=== PATIENT | female | born 2000 | race Hispanic/Latino ===

== ENCOUNTER 2020-08-29 13:38 | Observation (INO) | payer MEDICAID ==
[~2020-08-29] VITALS: Ht 154.9 cm; Wt 71.2 kg
[2020-08-29 14:58] LABS: APPEARANCE,URINE CLOUDY (CLEAR); BILIRUBIN,URINE NEGATIVE (NEGATIVE); COLOR,URINE YELLOW (YELLOW); GLUCOSE, URINE (UA) NEGATIVE (NEGATIVE); KETONES,URINE NEGATIVE (NEGATIVE); LEUKOCYTE ESTERASE ,URINE MODERATE (NEGATIVE); NITRATE,URINE NEGATIVE (NEGATIVE); OCCULT BLOOD,URINE NEGATIVE (NEGATIVE); PROTEIN,URINE NEGATIVE (NEGATIVE); UROBILINOGEN,URINE 0.2 mg/dL (0.2-1.0)
[2020-08-29 15:20] LABS: BACTERIA,URINE Few /HPF (None Seen); RBC,URINE 0-1 /HPF (0-1); SQUAMOUS EPITHELIAL CELL,UR Moderate /HPF (0-2)
[2020-08-29 15:21] LABS: MUCUS,URINE Rare LPF (None Seen)
== END 2020-08-29 15:40 | disposition home or self-care (01) ==
LOC: EDH 13:38 → LDH 13:39
PROVIDERS: ADMIT Obstetrics & Gynecology; ATTEND Obstetrics & Gynecology
DX: O26.892 Other specified pregnancy related conditions, second trimester (principal); R10.9 Unspecified abdominal pain; Z3A.21 21 weeks gestation of pregnancy
CPT/HCPCS: 59025; 81001; 87088; 99284; G0378 ×2

== ENCOUNTER 2021-01-14 20:07 | Inpatient (IN) | payer MEDICAID ==
[~2021-01-14] VITALS: Ht 154.9 cm; Wt 79.4 kg
[2021-01-14] MEDS ORDERED: LACTATED RINGERS 1000ML 1,000 ML IV SCH (20:30)
[2021-01-14 20:50] LABS: APPEARANCE,URINE Cloudy (CLEAR); BILIRUBIN,URINE Negative (NEGATIVE); COLOR,URINE Yellow (YELLOW); GLUCOSE, URINE (UA) Negative (NEGATIVE); KETONES,URINE Negative (NEGATIVE); LEUKOCYTE ESTERASE ,URINE Large (NEGATIVE); NITRATE,URINE Negative (NEGATIVE); OCCULT BLOOD,URINE Negative (NEGATIVE); PROTEIN,URINE POS 1+ mg/dL (NEGATIVE)
[2021-01-14 20:57] LABS: BACTERIA,URINE Few /HPF (None Seen); RBC,URINE 0-1 /HPF (0-1); SQUAMOUS EPITHELIAL CELL,UR Moderate /HPF (0-2)
[2021-01-14 21:43] LABS: AMPHET/METH SCREEN,URINE NEGATIVE (NEGATIVE); BARBITURATE SCREEN, URINE NEGATIVE (NEGATIVE); BENZODIAZEPINES SCREEN,URINE NEGATIVE (NEGATIVE); CANNABINOID SCREEN,URINE NEGATIVE (NEGATIVE); COCAINE SCREEN,URINE NEGATIVE (NEGATIVE); OPIATE SCREEN,URINE NEGATIVE (NEGATIVE); PHENCYCLIDINE SCREEN,URINE NEGATIVE (NEGATIVE)
[2021-01-14] MEDS ORDERED: LACTATED RINGERS 1000ML 1,000 ML IV PRN (22:00)
[2021-01-14 22:12] LABS: HEMATOCRIT 33.8 % (36-48); MEAN CORPUSCULAR HEMOGLOBIN 29.5 pg (27.0-33.0); MEAN CORPUSCULAR HGB CONC 33.7 g/dL (32.0-36.0); MEAN CORPUSCULAR VOLUME 87.3 fL (80-100); RED BLOOD CELL COUNT(AUTO) 3.87 MIL/uL (4.00-5.50); RED CELL DISTRIBUTION WIDTH 13.4 % (11.0-15.5); WHITE BLOOD COUNT (AUTO) 8.8 K/uL (4.8-10.8)
[2021-01-15 00:21] VITALS: BP 112/70
[2021-01-15] MEDS ORDERED: OXYTOCIN-LR 20 UNITS/1000 ML 1,000 ML IV ONE (06:24)
[2021-01-15] MEDS ORDERED: OXYTOCIN-LR 20 UNITS/1000 ML 1,000 ML IV SCH (06:30)
[2021-01-15] MEDS ORDERED: EPHEDRINE SULFATE 50 MG/ML AMPULE IVP PRN (10:00)
[2021-01-15] MEDS ORDERED: NALOXONE HCL 0.4 MG/1 ML ML IV PRN (10:00)
[2021-01-15] MEDS ORDERED: ROPIVACAINE 0.2% 100ML VIAL 100 ML EP SCH (10:00)
[2021-01-15] MEDS ORDERED: LIDOCAINE HCL 1% 20 ML VIAL ONE (17:31)
[2021-01-15] MEDS ORDERED: METHYLERGONOVINE MALEATE 0.2 MG/1 ML ML ONE (17:49)
[2021-01-15] MEDS ORDERED: MISOPROSTOL 200 MCG TABLET ONE (17:53)
[2021-01-15] MEDS: OXYTOCIN-LR 20 UNITS/1000 ML 1,000 ML IV SCH ×2 (18:00→18:52)
[2021-01-15] MEDS ORDERED: ACETAMINOPHEN WITH CODEINE 1 TAB TAB PO PRN (18:30)
[2021-01-15] MEDS ORDERED: BENZOCAINE/LANOLIN/ALOE VERA 60 ML AEROSOL TP PRN (18:30)
[2021-01-15] MEDS ORDERED: LANOLIN 30GM OINTMENT TP PRN (18:30)
[2021-01-15] MEDS ORDERED: ACETAMINOPHEN 325 MG TAB PO PRN (18:30)
[2021-01-15] MEDS ORDERED: DIPH,PERTUSS(ACELL),TET VAC/PF 0.5 ML VIAL IM PRN (18:30)
[2021-01-15] MEDS ORDERED: WITCH HAZEL 1 PAD TP PRN (18:30)
[2021-01-15] MEDS ORDERED: MEASLES/MUMPS/RUBELLA VACCINE, LIVE 0.5 ML/VIAL SQ PRN (18:30)
[2021-01-15] MEDS: IBUPROFEN 600 MG TABLET PO PRN (19:41)
[2021-01-15 19:50] VITALS: BP 135/80
[2021-01-15] MEDS: DOCUSATE SODIUM 100 MG CAP PO SCH (22:05)
[2021-01-15] MEDS ORDERED: PREN-202 PO (22:06)
[2021-01-15] MEDS ORDERED: CEPH500T PO (22:06)
[2021-01-15 23:31] VITALS: BP 129/80
[2021-01-16 03:22] VITALS: BP 135/97
[2021-01-16] MEDS: IBUPROFEN 600 MG TABLET PO PRN ×3 (03:26→16:34)
[2021-01-16 06:41] LABS: HEMATOCRIT 27.7 % (36-48); MEAN CORPUSCULAR HEMOGLOBIN 29.7 pg (27.0-33.0); MEAN CORPUSCULAR HGB CONC 33.9 g/dL (32.0-36.0); MEAN CORPUSCULAR VOLUME 87.7 fL (80-100); RED BLOOD CELL COUNT(AUTO) 3.16 MIL/uL (4.00-5.50); RED CELL DISTRIBUTION WIDTH 13.2 % (11.0-15.5); WHITE BLOOD COUNT (AUTO) 16.4 K/uL (4.8-10.8)
[2021-01-16 08:05] VITALS: BP 128/79
[2021-01-16 08:15] LABS: HEPATITIS Bs ANTIGEN SCREEN P Negative (Negative)
[2021-01-16] MEDS: DOCUSATE SODIUM 100 MG CAP PO SCH (08:43)
[2021-01-16 11:20] VITALS: BP 139/84
[2021-01-16 11:50] VITALS: BP 126/82
[2021-01-16] MEDS ORDERED: IBUP-2070 PO (15:55)
[2021-01-16] MEDS ORDERED: FERR325T22 PO (15:55)
[2021-01-16 16:12] VITALS: BP 111/62
== END 2021-01-16 18:20 | disposition home or self-care (01) | DRG 560 ==
LOC: EDH 20:07 → OBSVTOIN 20:08 → LDH 20:08 → WSH 01-15 19:45
PROVIDERS: ADMIT Obstetrics & Gynecology; ATTEND Obstetrics & Gynecology
PROC: 10E0XZZ Delivery of Products of Conception, External Approach (ICD-10-PCS; principal; 2021-01-14)
PROC: 0W8NXZZ Division of Female Perineum, External Approach (ICD-10-PCS; 2021-01-14)
DX: O69.1XX0 Labor and delivery complicated by cord around neck, with compression, not applicable or unspecified (principal); Z37.0 Single live birth; Z3A.39 39 weeks gestation of pregnancy
CPT/HCPCS: 36415; 80305; 81001; 85027; 86592; 86850; 86900; 86901; 87088; 87340; 90715; A4314; G0378; J2210; J2590; J7120

== ENCOUNTER 2021-03-11 00:52 | Emergency (ER) | payer MEDICAID ==
[~2021-03-11] VITALS: Ht 154.9 cm; Wt 70.3 kg
[~2021-03-11 00:52] MED LIST: CEPH500T PO; FERR325T22 PO; IBUP-2070 PO; PREN-202 PO
[2021-03-11] MEDS ORDERED: ONDANSETRON 4MG INJ ONE (01:10)
[2021-03-11] MEDS ORDERED: ONDANSETRON 4MG INJ IVP ONE (01:30)
[2021-03-11] MEDS ORDERED: 0.9%NACL 1000ML 1,000 ML IV SCH (01:30)
[2021-03-11 01:38] LABS: BASOPHILS % (AUTO) 0.2 % (0.0-5.0); EOSINOPHILS % (AUTO) 0.8 % (0.0-8.0); HEMATOCRIT 36.6 % (36-48); LYMPHOCYTES % (AUTO) 48.7 % (21.0-51.0); MEAN CORPUSCULAR HEMOGLOBIN 29.2 pg (27.0-33.0); MEAN CORPUSCULAR HGB CONC 33.9 g/dL (32.0-36.0); MEAN CORPUSCULAR VOLUME 86.3 fL (80-100); MONOCYTES % (AUTO) 5.4 % (3.0-13.0); NEUTROPHILS % (AUTO) 44.8 % (40.0-77.0); PLATELET COUNT (AUTO) 277 K/uL (130-400); RED BLOOD CELL COUNT(AUTO) 4.24 MIL/uL (4.00-5.50); RED CELL DISTRIBUTION WIDTH 12.7 % (11.0-15.5); WHITE BLOOD COUNT (AUTO) 8.3 K/uL (4.8-10.8)
[2021-03-11 01:49] LABS: CREATININE 0.8 mg/dL (0.5-1.5); POTASSIUM 3.7 mmol/L (3.5-5.1)
[2021-03-11 01:53] LABS: ALBUMIN 3.6 g/dL (3.5-5.0); BILIRUBIN,TOTAL 0.3 mg/dL (0.2-1.0); TOTAL PROTEIN, SERUM 7.6 g/dL (6.0-8.3)
[2021-03-11 03:37] VITALS: BP 115/78
[2021-03-11 03:40] LABS: APPEARANCE,URINE Clear (CLEAR); BILIRUBIN,URINE Negative (NEGATIVE); COLOR,URINE Yellow (YELLOW); GLUCOSE, URINE (UA) Negative (NEGATIVE); KETONES,URINE Negative (NEGATIVE); LEUKOCYTE ESTERASE ,URINE Trace (NEGATIVE); NITRATE,URINE Negative (NEGATIVE); OCCULT BLOOD,URINE Large (NEGATIVE); PH,URINE 6.5 (5.0-8.0); PROTEIN,URINE Negative (NEGATIVE); UROBILINOGEN,URINE 0.2 mg/dL (0.2-1.0)
[2021-03-11 04:14] LABS: BACTERIA,URINE None Seen /HPF (None Seen); SQUAMOUS EPITHELIAL CELL,UR Moderate /HPF (0-2)
[2021-03-11 04:36] LABS: AMPHET/METH SCREEN,URINE NEGATIVE (NEGATIVE); BARBITURATE SCREEN, URINE NEGATIVE (NEGATIVE); BENZODIAZEPINES SCREEN,URINE NEGATIVE (NEGATIVE); CANNABINOID SCREEN,URINE NEGATIVE (NEGATIVE); COCAINE SCREEN,URINE NEGATIVE (NEGATIVE); OPIATE SCREEN,URINE NEGATIVE (NEGATIVE); PHENCYCLIDINE SCREEN,URINE NEGATIVE (NEGATIVE)
[2021-03-11] MEDS ORDERED: CIPR-278 PO (04:41)
[2021-03-11] MEDS ORDERED: NAPR-1180 PO (04:41)
[2021-03-11] MEDS ORDERED: ONDA4TAB4 PO (04:41)
== END 2021-03-11 04:54 | disposition home or self-care (01) ==
LOC: EDH 00:52
DX: K80.70 Calculus of gallbladder and bile duct without cholecystitis without obstruction (principal); R11.2 Nausea with vomiting, unspecified; Z79.899 Other long term (current) drug therapy; Z79.1 Long term (current) use of non-steroidal anti-inflammatories (NSAID)
CPT/HCPCS: 36415; 76700; 80053; 80305; 81001; 83690; 84702; 85025; 87088; 96361 ×2; 96374; 99284; J2405

== ENCOUNTER → 2022-01-30 | Outpatient (CLI) | payer MEDICAID ==
[~2022-01-30] MED LIST changes: +CIPR-278 PO; +NAPR-1180 PO; +ONDA4TAB4 PO
== END | disposition home or self-care (01) ==
LOC: RAH 11:11
PROVIDERS: ATTEND Family Medicine
DX: K76.0 Fatty (change of) liver, not elsewhere classified (principal); R10.11 Right upper quadrant pain; K80.20 Calculus of gallbladder without cholecystitis without obstruction
CPT/HCPCS: 76705

== ENCOUNTER 2022-09-09 22:46 | Observation (INO) | payer MEDICAID ==
[~2022-09-09] VITALS: Ht 154.9 cm; Wt 78.5 kg
[2022-09-09] MEDS ORDERED: PREN-196 PO (23:08)
[2022-09-09 23:22] LABS: APPEARANCE,URINE CLOUDY (CLEAR); BILIRUBIN,URINE NEGATIVE (NEGATIVE); COLOR,URINE LIGHT-YELLOW (YELLOW); GLUCOSE, URINE (UA) NEGATIVE (NEGATIVE); KETONES,URINE 10 mg/dL (NEGATIVE); LEUKOCYTE ESTERASE ,URINE 500 Leu/uL (NEGATIVE); NITRATE,URINE NEGATIVE (NEGATIVE); OCCULT BLOOD,URINE NEGATIVE (NEGATIVE); PH,URINE 5.5 (5.0-8.0); PROTEIN,URINE NEGATIVE (NEGATIVE); UROBILINOGEN,URINE 0.2 mg/dL (0.2-1.0)
[2022-09-09 23:28] LABS: BACTERIA,URINE RARE /HPF (None Seen); MUCUS,URINE RARE LPF (None Seen); SQUAMOUS EPITHELIAL CELL,UR MOD /HPF (0-2); WBC,URINE 26-50 /HPF (0-1)
[2022-09-10] MEDS: LACTATED RINGERS 1000ML 1,000 ML IV SCH ×2 (00:28→06:51)
[2022-09-10 05:49] VITALS: BP 103/56
== END 2022-09-10 09:08 | disposition home or self-care (01) ==
LOC: EDH 22:46 → LDH 22:47
PROVIDERS: ADMIT Obstetrics & Gynecology; ATTEND Obstetrics & Gynecology
DX: O26.893 Other specified pregnancy related conditions, third trimester (principal); R10.10 Upper abdominal pain, unspecified; Z3A.30 30 weeks gestation of pregnancy; V89.2XXA Person injured in unspecified motor-vehicle accident, traffic, initial encounter; Y93.89 Activity, other specified; Y92.89 Other specified places as the place of occurrence of the external cause; Y99.8 Other external cause status
CPT/HCPCS: 87088; 81001; 96361 ×2; 59025; 96360; 76805; G0378 ×9; J7120 ×3